=== PATIENT | female | born 1965 | race American Indian/Alaskan Native ===

== ENCOUNTER 2016-07-03 22:29 | Emergency (ER) | payer OTHER ==
[2016-07-03 23:19] VITALS: BMI 25.3
[2016-07-03 23:22] VITALS: RESP 18
[2016-07-03] MEDS ORDERED: Silver Sulfadiazine 1% Cream (20 gm) TOP STA (23:35)
[2016-07-04 01:40] VITALS: BP 153/80; PULSE 79; TEMP 98.1; O2SAT 99
--- NOTE | 2016-07-04 05:12 | ED PDOC ---
Arrival/HPI - General Historian: Patient - History of Present Illness Time/Duration: < week Quality: Burning <Juanito Hutchison - Last Filed: 07/04/16 05:07> <Naresh Valdivia - Last Filed: 07/04/16 05:43> - General Chief Complaint: Lower Extremity Problem/Injury Time Seen by Provider: 07/03/16 23:16 - History of Present Illness Narrative History of Present Illness (Text): 51 y/o female with no significant history presenting with right anterior distal leg pain. Patient states she returned from the [facility] a few days ago where she sustained a sunburn to the area. Patient has used aloe cream without relief. She denies fever, chills, open wound or blistering. She denies other injury or trauma. Her pain is worse with ambulation and standing. She denies any posterior calf pain or swelling. (Juanito Hutchison) Past Medical History - Provider Review Nursing Documentation Reviewed: Yes - Infectious Disease Hx of Infectious Diseases: None - Cardiac Hx Cardiac Disorders: No - Pulmonary Hx Respiratory Disorders: No - Neurological Hx Neurological Disorder: No - HEENT Hx HEENT Disorder: No - Renal Hx Renal Disorder: No - Endocrine/Metabolic Hx Endocrine Disorders: Yes Hx Diabetes Mellitus Type 2: (PRE DIABETIC) - Hematological/Oncological Hx Blood Disorders: No - Integumentary Hx Dermatological Disorder: No - Musculoskeletal/Rheumatological Hx Musculoskeletal Disorders: No - Gastrointestinal Hx Gastrointestinal Disorders: No - Genitourinary/Gynecological Hx Genitourinary Disorders: No - Psychiatric Hx Psychophysiologic Disorder: No Hx Substance Use: No - Surgical History Hx Section: Yes (X4) Hx Tubal Ligation: Yes - Anesthesia Hx Anesthesia: Yes Hx Anesthesia Reactions: No Hx Malignant Hyperthermia: No - Suicidal Assessment Feels Threatened In Home Enviroment: No <Juanito Hutchison - Last Filed: 07/04/16 05:07> Family/Social History - Physician Review Nursing Documentation Reviewed: Yes Family/Social History: Unknown Family HX Smoking Status: Never Smoked Hx Alcohol Use: Yes Hx Substance Use: No <Juanito Hutchison - Last Filed: 07/04/16 05:07> Allergies/Home Meds <Juanito Hutchison - Last Filed: 07/04/16 05:07> <Naresh Valdivia - Last Filed: 07/04/16 05:43> Allergies/Adverse Reactions: Allergies latex Allergy (Verified 07/03/16 23:19) RASH soy Allergy (Verified 07/03/16 23:19) RASH Home Medications: Home Meds Medication Instructions Recorded Confirmed Multivit, Iron, Min #5, FA 1 tab PO DAILY 01/10/15 01/10/15 [Strovite Forte] Cholecalciferol (Vitamin D3) 1 tab PO DAILY 04/27/16 04/27/16 [Vitamin D3] Review of Systems - Physician Review All systems were reviewed & negative as marked: Yes - Review of Systems Constitutional: absent: Fatigue, Fevers Musculoskeletal: absent: Arthralgias, Back Pain Skin: Other (sunburn to distal left leg ). absent: Rash, Pruritis, Cellulitis <Juanito Hutchison - Last Filed: 07/04/16 05:07> Physical Exam Vital Signs Reviewed: Yes Temperature: Afebrile Blood Pressure: Normal Pulse: Regular Respiratory Rate: Normal Appearance: Positive for: Well-Appearing Pain Distress: None Mental Status: Positive for: Alert and Oriented X 3 - Systems Exam Head: Present: Atraumatic, Normocephalic Pupils: Present: PERRL Extroacular Muscles: Present: EOMI Conjunctiva: Present: Normal Mouth: Present: Moist Mucous Membranes Neck: Present: Normal Range of Motion Respiratory/Chest: Present: Clear to Auscultation, Good Air Exchange. No: Respiratory Distress Abdomen: Present: Normal Bowel Sounds. No: Tenderness Upper Extremity: Present: Normal Inspection, Normal ROM, NORMAL PULSES. No: Cyanosis, Edema Lower Extremity: Present: NORMAL PULSES, Normal ROM. No: Normal Inspection ( first degree burn to anterior tibial area. ), Edema, CALF TENDERNESS, Cyanosis, Roma's Sign, Tenderness Neurological: Present: GCS=15, CN II-XII Intact, Speech Normal Skin: Present: Warm, Dry Psychiatric: Present: Alert, Oriented x 3, Normal Insight, Normal Concentration <Juanito Hutchison - Last Filed: 07/04/16 05:07> Vital Signs Temp Pulse Resp BP Pulse Ox 07/04/16 01:39 98.1 F 79 18 153/80 H 99 07/03/16 23:22 73 18 158/91 H 98 07/03/16 23:19 80 16 98 Medical Decision Making <Juanito Hutchison - Last Filed: 07/04/16 05:07> <Naresh Valdivia - Last Filed: 07/04/16 05:43> ED Course and Treatment: 51 y/o with no PMH presenting with first degree sunburn to right anterior distal leg. There is no evidence of cellulitis or underlying blistering or wound. Will manage pain with Motrin 800mg now. Silvadene will be applied topically with gauze dressing. The patient is advised to f/u with her PCP for further monitoring of her burn. She is advised to continue using Motrin as needed for discomfort. (Juanito Hutchison) In agreement with resident note, which includes further HPI details. Patient was seen and evaluated with resident, came up with plan and treatment together. (Naresh Valdivia) - Medication Orders Current Medication Orders: Discontinued Medications Ibuprofen (Motrin Tab) 800 mg PO STAT STA Stop: 07/03/16 23:35 Last Admin: 07/04/16 00:42 Dose: 800 MG MAR Pain/Vitals Document 07/04/16 00:42 [email or web address] (Rec: 07/04/16 00:43 [email or web address] [facility] [id number]) Pain Reassessment Is This A Pain ReAssessment? No Sleep Is patient sleeping during reassessment? No Presence of Pain Presence of Pain Yes Pain Scale Used Pain Scale Used Numeric Location Left, Right or Bilateral Left Pain Location Body Site leg Description Constant Intensity 7 Scale Used Numeric Pain Behavior Facial Grimacing Aggravating Factors Changing Position Aggravating Factors Changing Position Silver Sulfadiazine (Silvadene 1% 20 Gm) 0 ea TOP STAT STA Stop: 07/03/16 23:36 Last Admin: 07/04/16 00:43 Dose: 1 APPL - PA / HARDENING MACHINE OPERATOR HELPER / Resident Statement / has reviewed & agrees with the documentation as recorded. / has examined the patient and agrees with the treatment plan. <Naresh Valdivia - Last Filed: 07/04/16 05:43> Disposition/Present on Arrival - Present on Arrival Any Indicators Present on Arrival: No History of DVT/PE: No History of Uncontrolled Diabetes: No Urinary Catheter: No History of Decub. Ulcer: No History Surgical Site Infection Following: None - Disposition Have Diagnosis and Disposition been Completed?: Yes Disposition Time: 13:00 <Juanito Hutchison - Last Filed: 07/04/16 05:07> <Naresh Valdivia - Last Filed: 07/04/16 05:43> - Disposition Diagnosis: Sunburn of first degree Disposition: HOME/ ROUTINE Condition: STABLE Discharge Instructions (ExitCare): Sunburn (ED) Additional Instructions: Take ibuprofen for pain as needed every 6 hours. You may apply aloe to the skin as needed to sooth skin and pain. Avoid hot showers. Return to ER if symptoms worsen.
== END 2016-07-04 01:39 | disposition home or self-care (01) ==
LOC: ED 22:29
DX: L55.0 Sunburn of first degree (principal)

== ENCOUNTER 2016-10-20 23:07 | Emergency (ER) | payer OTHER ==
[2016-10-20 23:07] VITALS: BMI 25.3
[2016-10-20 23:30] VITALS: BP 145/95; PULSE 78; RESP 16; TEMP 98.2; O2SAT 95
[2016-10-21] MEDS ORDERED: Naproxen 550 mg Tab PO STA (00:12)
--- NOTE | 2016-10-21 00:20 | ED PDOC ---
Arrival/HPI - General Chief Complaint: Lower Extremity Problem/Injury Time Seen by Provider: 10/20/16 23:32 Historian: Patient - History of Present Illness Narrative History of Present Illness (Text): 10/21/16 00:20 51 yo F c/o 3 wk h/o R ankle pain, states that she hit her ankle on a chair 3 wks ago and since then her ankle has intermittently swell and becomes painful. Denies any fever, chills, foot pain, knee pain, or any other injury or joint pain. Past Medical History - Provider Review Nursing Documentation Reviewed: Yes - Infectious Disease Hx of Infectious Diseases: None - Cardiac Hx Cardiac Disorders: No - Pulmonary Hx Respiratory Disorders: No - Neurological Hx Neurological Disorder: No - HEENT Hx HEENT Disorder: No - Renal Hx Renal Disorder: No - Endocrine/Metabolic Hx Endocrine Disorders: Yes Hx Diabetes Mellitus Type 2: (PRE DIABETIC) - Hematological/Oncological Hx Blood Disorders: No - Integumentary Hx Dermatological Disorder: No - Musculoskeletal/Rheumatological Hx Musculoskeletal Disorders: No - Gastrointestinal Hx Gastrointestinal Disorders: No - Genitourinary/Gynecological Hx Genitourinary Disorders: No - Psychiatric Hx Psychophysiologic Disorder: No Hx Substance Use: No - Surgical History Hx Section: Yes (X4) Hx Tubal Ligation: Yes - Anesthesia Hx Anesthesia: Yes Hx Anesthesia Reactions: No Hx Malignant Hyperthermia: No - Suicidal Assessment Feels Threatened In Home Enviroment: No Family/Social History - Physician Review Nursing Documentation Reviewed: Yes Family/Social History: No Known Family HX Smoking Status: Never Smoked Hx Alcohol Use: Yes Hx Substance Use: No Allergies/Home Meds Allergies/Adverse Reactions: Allergies latex Allergy (Verified 10/20/16 23:30) RASH soy Allergy (Verified 10/20/16 23:30) RASH Home Medications: Home Meds Medication Instructions Recorded Confirmed Multivit,Iron,Min 5/Folic Acid 1 tab PO DAILY 01/10/15 10/20/16 [Strovite Forte] Cholecalciferol (Vitamin D3) 1 tab PO DAILY 04/27/16 10/20/16 [Vitamin D3] Iron,Carb/Vit C/Vit B12/Folic 1 tab PO DAILY 10/20/16 10/20/16 [Iron 100 Plus Tablet] Review of Systems - Review of Systems Constitutional: Normal. absent: Fatigue, Weight Change, Fevers Musculoskeletal: Normal, Arthralgias. absent: Back Pain, Neck Pain Skin: Normal. absent: Rash, Pruritis, Skin Lesions Physical Exam Vital Signs Reviewed: Yes Vital Signs Temp Pulse Resp BP Pulse Ox 10/20/16 23:32 98.2 F 78 16 145/95 H 95 10/20/16 23:30 98.2 F 78 16 145/95 H 95 Appearance: Positive for: Well-Appearing, Non-Toxic, Comfortable Pain Distress: None Mental Status: Positive for: Alert and Oriented X 3 - Systems Exam Lower Extremity: Present: Normal Inspection, NORMAL PULSES, Normal ROM, Neurovascularly Intact, Capillary Refill < 2 s, Other (R ankle : (+) mild edema and tenderness to the lateral malleolus, FROM, (-) ecchymosis, DP pulse 2+, sensation intact. ). No: Edema, CALF TENDERNESS, Tenderness, Swelling, Erythema , Deformity, Temperature Abnormalties Neurological: Present: GCS=15, CN II-XII Intact, Speech Normal, Motor Func Grossly Intact, Normal Sensory Function Skin: Present: Warm, Dry, Normal Color. No: Rashes Medical Decision Making ED Course and Treatment: 10/21/16 00:25 51 yo F c/o 3 wk h/o R ankle pain, states that she hit her ankle on a chair 3 wks ago. To r/o fracture, likely sprain, consider contusion. Plan: - XR R ankle - Naprosyn XR R ankle : (-) fracture, (-) dislocation, as read by PA. XR results reviewed and d/w the pt. Parth wrap applied to the ankle. Pt advised RICE to the R ankle, instructed to take Rx medication prn for pain. Otherwise to f/u with pmd or ortho referral provided in 1-2 days without fail. Instructed to return to the ER at any time for any new or worsening symptoms. Pt verbalize understanding of diagnosis, treatment and plan, agrees with outpt follow up. - RAD Interpretation Radiology Orders: 10/21/16 00:12 ANKLE RIGHT 3 VIEWS ROUTINE [RAD] Stat - Medication Orders Current Medication Orders: Discontinued Medications Naproxen (Anaprox Ds) 550 mg PO ONCE STA Stop: 10/21/16 00:13 Last Admin: 10/21/16 00:34 Dose: 550 mg - PA / WIRE MILL OPERATOR / Resident Statement MD/DO has reviewed & agrees with the documentation as recorded. Disposition/Present on Arrival - Present on Arrival Any Indicators Present on Arrival: No History of DVT/PE: No History of Uncontrolled Diabetes: No Urinary Catheter: No History of Decub. Ulcer: No History Surgical Site Infection Following: None - Disposition Have Diagnosis and Disposition been Completed?: Yes Diagnosis: Ankle sprain Disposition: HOME/ ROUTINE Disposition Time: 00:59 Patient Plan: Discharge Patient Problems: Current Active Problems Problem Status Onset Ankle sprain Acute Condition: STABLE Discharge Instructions (ExitCare): Ankle Sprain (ED) Print Language: WELSH Additional Instructions: REST, ICE, ELEVATE. Follow up with pmd or ortho referral provided in 1-2 days without fail. Take prescription as prescribed. Return to the ER at any time for any new or worsening symptoms. Prescriptions: Meloxicam [Mobic] 15 mg PO DAILY PRN #30 tab PRN Reason: Pain, Moderate (4-7) Referrals: PCP,NO [Primary Care Provider] - Follow up with primary Marisa Molina MD [Staff Provider] - Follow up with primary Forms: WORK NOTE
--- NOTE | 2016-10-21 10:19 | RAD ---
PROCEDURE: Right Ankle Radiographs. O off HISTORY: pain COMPARISON: None FINDINGS: BONES: Normal. No fracture. JOINTS: Normal. No osteoarthritis. Ankle mortise maintained. Talar dome intact SOFT TISSUES: Normal. OTHER FINDINGS: None. IMPRESSION: Normal right ankle radiographs.
== END 2016-10-21 01:18 | disposition home or self-care (01) ==
LOC: ED 23:07
DX: S93.401A Sprain of unspecified ligament of right ankle, initial encounter (principal); W22.03XA Walked into furniture, initial encounter

== ENCOUNTER 2016-10-28 14:33 | Emergency (ER) | payer OTHER ==
[2016-10-28 14:33] VITALS: BMI 25.3
[2016-10-28 14:41] VITALS: BP 161/92; TEMP 98.1
--- NOTE | 2016-10-28 14:50 | ED PDOC ---
Arrival/HPI - General Chief Complaint: Lower Extremity Problem/Injury Time Seen by Provider: 10/28/16 14:48 Historian: Patient - History of Present Illness Narrative History of Present Illness (Text): 10/28/16 14:49 This 51 yo female presents to this ED c/o right ankle pain x 4 weeks. Patient stated she was seen in this ED last week for same complain. Patient stated pain has gotten worse. Patient denies trauma, weakness, paresthesias, leg swelling, calf pain, skin rash. Time/Duration: > month Quality: Aching Context: Home Past Medical History - Provider Review Nursing Documentation Reviewed: Yes - Infectious Disease Hx of Infectious Diseases: None - Reproductive Menopause: Yes - Cardiac Hx Cardiac Disorders: No - Pulmonary Hx Respiratory Disorders: No - Neurological Hx Neurological Disorder: No - HEENT Hx HEENT Disorder: No - Renal Hx Renal Disorder: No - Endocrine/Metabolic Hx Endocrine Disorders: Yes Hx Diabetes Mellitus Type 2: (PRE DIABETIC) - Hematological/Oncological Hx Blood Disorders: No - Integumentary Hx Dermatological Disorder: No - Musculoskeletal/Rheumatological Hx Musculoskeletal Disorders: No - Gastrointestinal Hx Gastrointestinal Disorders: No - Genitourinary/Gynecological Hx Genitourinary Disorders: No - Psychiatric Hx Psychophysiologic Disorder: No Hx Substance Use: No - Surgical History Hx Section: Yes (X4) Hx Tubal Ligation: Yes - Anesthesia Hx Anesthesia: Yes Hx Anesthesia Reactions: No Hx Malignant Hyperthermia: No - Suicidal Assessment Feels Threatened In Home Enviroment: No Family/Social History - Physician Review Nursing Documentation Reviewed: Yes Family/Social History: No Known Family HX Smoking Status: Never Smoked Hx Alcohol Use: Yes Hx Substance Use: No Allergies/Home Meds Allergies/Adverse Reactions: Allergies latex Allergy (Verified 10/28/16 14:41) RASH soy Allergy (Verified 10/28/16 14:41) RASH Home Medications: Home Meds Medication Instructions Recorded Confirmed Multivit,Iron,Min 5/Folic Acid 1 tab PO DAILY 01/10/15 10/28/16 [Strovite Forte] Cholecalciferol (Vitamin D3) 1 tab PO DAILY 04/27/16 10/28/16 [Vitamin D3] Iron,Carb/Vit C/Vit B12/Folic 1 tab PO DAILY 10/20/16 10/28/16 [Iron 100 Plus Tablet] Review of Systems - Review of Systems Constitutional: Normal. absent: Fatigue, Weight Change, Fevers Eyes: Normal ENT: Normal Respiratory: Normal Cardiovascular: Normal Gastrointestinal: Normal Genitourinary Female: Normal Musculoskeletal: Other (ankle pain) Skin: Normal Neurological: Normal Endocrine: Normal Hemo/Lymphatic: Normal Psychiatric: Normal Physical Exam Vital Signs Temp Pulse Resp BP Pulse Ox 10/28/16 15:23 98.1 F 85 18 98 10/28/16 15:16 98.1 F 82 16 98 10/28/16 14:36 98.1 F 82 19 161/92 H 99 Temperature: Afebrile Blood Pressure: Normal Pulse: Regular Respiratory Rate: Normal Appearance: Positive for: Well-Appearing, Non-Toxic, Comfortable Pain Distress: None Mental Status: Positive for: Alert and Oriented X 3 - Systems Exam Head: Present: Atraumatic, Normocephalic Pupils: Present: PERRL Extroacular Muscles: Present: EOMI Conjunctiva: Present: Normal Mouth: Present: Moist Mucous Membranes Back: Present: Normal Inspection. No: CVA Tenderness Upper Extremity: Present: Normal Inspection, Normal ROM, NORMAL PULSES, Neurovascularly Intact Lower Extremity: Present: Normal Inspection, NORMAL PULSES, Tenderness ((+) posterior ankle tenderness), Neurovascularly Intact, Capillary Refill < 2 s, Other ((+) Rondon test). No: Edema, CALF TENDERNESS, Roma's Sign, Swelling, Erythema, Deformity, Temperature Abnormalties Neurological: Present: GCS=15, CN II-XII Intact Skin: Present: Warm, Dry, Normal Color. No: Rashes Psychiatric: Present: Alert, Oriented x 3 Medical Decision Making ED Course and Treatment: 10/28/16 16:27 Discussed results and plan with patient. Patient understands results and is agreeable with plan. All questions answered Patient was given a referral for orthopedist at [facility]. Patient was advised she will need MRI and orthopedist consult. Re-evaluation Time: 15:00 Reassessment Condition: Re-examined - Medication Orders Current Medication Orders: Discontinued Medications Ketorolac Tromethamine (Toradol) 30 mg IVP STAT STA Stop: 10/28/16 15:12 Last Admin: 10/28/16 15:20 Dose: 30 mg Disposition/Present on Arrival - Present on Arrival Any Indicators Present on Arrival: No History of DVT/PE: No History of Uncontrolled Diabetes: No Urinary Catheter: No History of Decub. Ulcer: No History Surgical Site Infection Following: None - Disposition Have Diagnosis and Disposition been Completed?: Yes Diagnosis: Achilles tendon rupture Disposition: HOME/ ROUTINE Disposition Time: 15:05 Patient Plan: Discharge Condition: GOOD Discharge Instructions (ExitCare): Achilles Tendon Rupture (ED) Additional Instructions: Call orthopedist clinic for follow up visit in 1-3 days. Call Hydro Operator phone number to get help to set up appointment. Keep ankle elevated, ice, rest. Do not wet, or get splint dirty. Consider [facility] if you have problems with appointment. return to emergency if symptoms worsen. Bring Referral form for the appointment. Prescriptions: Naproxen 500 mg PO BID #14 tab oxyCODONE/Acetaminophen [Percocet 5/325 mg Tab] 1 ea PO BID PRN #10 tab PRN Reason: Pain, Severe (8-10) Referrals: PCP,NO [Primary Care Provider] - Follow up with primary [facility] [Outside] - Follow up with primary [facility] [Outside] - Follow up with primary Forms: [employer] (Chinese)
[2016-10-28 15:16] VITALS: O2SAT 98
[2016-10-28 15:24] VITALS: PULSE 85; RESP 18
== END 2016-10-28 15:24 | disposition home or self-care (01) ==
LOC: ED 14:33
DX: S86.011A Strain of right Achilles tendon, initial encounter (principal); X58.XXXA Exposure to other specified factors, initial encounter; Y93.9 Activity, unspecified; Y92.9 Unspecified place or not applicable
CPT/HCPCS: 96374; 99283; J1885

== ENCOUNTER 2016-11-07 23:06 | Emergency (ER) | payer OTHER ==
[2016-11-07 23:07] VITALS: BMI 25.3
[2016-11-08 00:38] VITALS: BP 145/67; PULSE 73; RESP 16; TEMP 98.2; O2SAT 100
[2016-11-08] MEDS ORDERED: Oxycodone/Acetaminophen 5/325 mg Tab PO STA (01:08)
--- NOTE | 2016-11-08 01:12 | ED PDOC ---
Arrival/HPI - General Chief Complaint: Allergic Reaction Time Seen by Provider: 11/08/16 00:35 Historian: Patient - History of Present Illness Narrative History of Present Illness (Text): 11/08/16 01:09 51 y/o female, post menopausal, here for the splint change and stated that it' s uncomfortable. Pt. was seen here at the ER about several days ago, splint was remove by the patient today as it's uncomfortable. Pt. has pain on and off due to the removal of the splint yesterday, been on the crutches, no numbness or tingling, no other medical or psychological complaints. Past Medical History - Provider Review Nursing Documentation Reviewed: Yes - Infectious Disease Hx of Infectious Diseases: None - Cardiac Hx Cardiac Disorders: No - Pulmonary Hx Respiratory Disorders: No - Neurological Hx Neurological Disorder: No - HEENT Hx HEENT Disorder: No - Renal Hx Renal Disorder: No - Endocrine/Metabolic Hx Endocrine Disorders: Yes Hx Diabetes Mellitus Type 2: (PRE DIABETIC) - Hematological/Oncological Hx Blood Disorders: No - Integumentary Hx Dermatological Disorder: No - Musculoskeletal/Rheumatological Hx Musculoskeletal Disorders: No - Gastrointestinal Hx Gastrointestinal Disorders: No - Genitourinary/Gynecological Hx Genitourinary Disorders: No - Psychiatric Hx Psychophysiologic Disorder: No Hx Substance Use: No - Surgical History Hx Section: Yes (X4) Hx Tubal Ligation: Yes - Anesthesia Hx Anesthesia: Yes Hx Anesthesia Reactions: No Hx Malignant Hyperthermia: No - Suicidal Assessment Feels Threatened In Home Enviroment: No Family/Social History - Physician Review Nursing Documentation Reviewed: Yes Family/Social History: Unknown Family HX Smoking Status: Never Smoked Hx Alcohol Use: No Hx Substance Use: No Allergies/Home Meds Allergies/Adverse Reactions: Allergies latex Allergy (Verified 11/08/16 00:29) RASH soy Allergy (Verified 11/08/16 00:29) RASH Home Medications: Home Meds Medication Instructions Recorded Confirmed Multivit,Iron,Min 5/Folic Acid 1 tab PO DAILY 01/10/15 10/28/16 [Strovite Forte] Cholecalciferol (Vitamin D3) 1 tab PO DAILY 04/27/16 10/28/16 [Vitamin D3] Iron,Carb/Vit C/Vit B12/Folic 1 tab PO DAILY 10/20/16 10/28/16 [Iron 100 Plus Tablet] Review of Systems - Review of Systems Constitutional: absent: Fatigue, Fevers Eyes: absent: Vision Changes ENT: absent: Hearing Changes Respiratory: absent: SOB, Cough Cardiovascular: absent: Chest Pain Gastrointestinal: absent: Abdominal Pain, Nausea, Vomiting Musculoskeletal: Arthralgias. absent: Back Pain, Neck Pain, Joint Swelling, Myalgias Skin: absent: Rash, Pruritis, Skin Lesions Physical Exam Vital Signs Reviewed: Yes Vital Signs Temp Pulse Resp BP Pulse Ox 11/08/16 00:30 98.2 F 73 16 145/67 100 Temperature: Afebrile Blood Pressure: Normal Pulse: Regular Respiratory Rate: Normal Appearance: Positive for: Well-Appearing, Non-Toxic, Comfortable Pain Distress: Moderate Mental Status: Positive for: Alert and Oriented X 3 - Systems Exam Head: Present: Atraumatic, Normocephalic Pupils: Present: PERRL Extroacular Muscles: Present: EOMI Conjunctiva: Present: Normal Mouth: Present: Moist Mucous Membranes Neck: Present: Normal Range of Motion Respiratory/Chest: Present: Clear to Auscultation, Good Air Exchange. No: Respiratory Distress, Accessory Muscle Use Cardiovascular: Present: Regular Rate and Rhythm, Normal S1, S2. No: Murmurs Abdomen: Present: Normal Bowel Sounds. No: Tenderness, Distention, Peritoneal Signs Back: Present: Normal Inspection Upper Extremity: Present: Normal Inspection. No: Cyanosis, Edema Lower Extremity: Present: Normal Inspection, Other (RLE: +ttp on the achilles region with skin intact, no rash or cellulitis, no ulcers, negathive gómez and ventura signs, no visible splints, FROM without limitation, sensation intact, motor 5/5, +DPPT pulses, capillary refill, 2 seconds, neurovascular intact. ). No: Edema Neurological: Present: GCS=15, CN II-XII Intact, Speech Normal Skin: Present: Warm, Dry, Normal Color. No: Rashes Psychiatric: Present: Alert, Oriented x 3, Normal Insight, Normal Concentration Medical Decision Making ED Course and Treatment: 11/08/16 01:12 -Percocet ordered for pain -New posterior splint applied by me with neurovascular intact, pt. feels comfortable, will discharge home. -Discharge home with posterior splint, crutches, elevation, follow up with your own pmd and orthopedic within 2 days, return to the Er for any new or worsening signs or symptoms. - PA / DIRECTOR OF COMMUNITY SERVICES / Resident Statement MD/DO has reviewed & agrees with the documentation as recorded. Disposition/Present on Arrival - Present on Arrival Any Indicators Present on Arrival: No History of DVT/PE: No History of Uncontrolled Diabetes: No Urinary Catheter: No History of Decub. Ulcer: No History Surgical Site Infection Following: None - Disposition Have Diagnosis and Disposition been Completed?: Yes Diagnosis: Aftercare for cast or splint check or change Disposition: HOME/ ROUTINE Disposition Time: 01:14 Patient Plan: Discharge Condition: GOOD Additional Instructions: -Discharge home with posterior splint, crutches, elevation, follow up with your own pmd and orthopedic within 2 days, return to the Er for any new or worsening signs or symptoms. Referrals: Neisha Ruano MD [Staff Provider] - Follow up with primary Forms: [employer] (Slovak), WORK NOTE
== END 2016-11-08 01:34 | disposition home or self-care (01) ==
LOC: ED 23:06
DX: Z47.89 Encounter for other orthopedic aftercare (principal)

== ENCOUNTER 2017-01-19 00:09 | Emergency (ER) | payer OTHER ==
[2017-01-19 00:09] VITALS: BMI 25.3
[2017-01-19] MEDS ORDERED: Oxycodone/Acetaminophen 5/325 mg Tab PO STA (01:00)
--- NOTE | 2017-01-19 01:02 | ED PDOC ---
Arrival/HPI - General Chief Complaint: Lower Extremity Problem/Injury Time Seen by Provider: 01/19/17 00:55 Historian: Patient - History of Present Illness Narrative History of Present Illness (Text): 01/19/17 00:59 Sangeeta Galeana is a 51 year old female who presents to the Emergency department complaining of right ankle pain. Patient states she has been experiencing right ankle pain with intermittent swelling for the past few months following a right ankle injury. Patient states she has been following up at [facility]. Patient states tonight right ankle swelling worsened after wearing her orthopedic boot with associated pain to the area. Patient denies any weakness/numbness/tingling in the extremity, other trauma/injury, or any other complaints. Time/Duration: > month (few months) Symptom Course: Unchanged Activities at Onset: Light Context: Home Past Medical History - Provider Review Nursing Documentation Reviewed: Yes - Infectious Disease Hx of Infectious Diseases: None - Cardiac Hx Cardiac Disorders: No - Pulmonary Hx Respiratory Disorders: No - Neurological Hx Neurological Disorder: No - HEENT Hx HEENT Disorder: No - Renal Hx Renal Disorder: No - Endocrine/Metabolic Hx Endocrine Disorders: Yes Hx Diabetes Mellitus Type 2: (PRE DIABETIC) - Hematological/Oncological Hx Blood Disorders: No - Integumentary Hx Dermatological Disorder: No - Musculoskeletal/Rheumatological Hx Musculoskeletal Disorders: No - Gastrointestinal Hx Gastrointestinal Disorders: No - Genitourinary/Gynecological Hx Genitourinary Disorders: No - Psychiatric Hx Psychophysiologic Disorder: No Hx Substance Use: No - Surgical History Hx Section: Yes (X4) Hx Tubal Ligation: Yes - Anesthesia Hx Anesthesia: Yes Hx Anesthesia Reactions: No Hx Malignant Hyperthermia: No - Suicidal Assessment Feels Threatened In Home Enviroment: No Family/Social History - Physician Review Nursing Documentation Reviewed: Yes Family/Social History: Unknown Family HX Smoking Status: Never Smoked Hx Alcohol Use: No Hx Substance Use: No Allergies/Home Meds Allergies/Adverse Reactions: Allergies latex Allergy (Verified 01/19/17 05:22) RASH soy Allergy (Verified 01/19/17 05:22) RASH Home Medications: Home Meds Medication Instructions Recorded Confirmed Multivit,Iron,Min 5/Folic Acid 1 tab PO DAILY 01/10/15 01/19/17 [Strovite Forte] Cholecalciferol (Vitamin D3) 1 tab PO DAILY 04/27/16 01/19/17 [Vitamin D3] Iron,Carb/Vit C/Vit B12/Folic 1 tab PO DAILY 10/20/16 01/19/17 [Iron 100 Plus Tablet] Review of Systems - Physician Review All systems were reviewed & negative as marked: Yes - Review of Systems Constitutional: Normal. absent: Fevers Eyes: Normal ENT: Normal Respiratory: Normal. absent: SOB, Cough Cardiovascular: Normal. absent: Chest Pain Gastrointestinal: Normal. absent: Abdominal Pain, Diarrhea, Nausea, Vomiting Genitourinary Female: Normal. absent: Dysuria, Frequency, Hematuria, Urine Output Changes Musculoskeletal: Arthralgias (+right ankle pain). absent: Back Pain, Neck Pain Skin: Normal. absent: Rash Neurological: Normal. absent: Headache, Dizziness Endocrine: Normal Hemo/Lymphatic: Normal Psychiatric: Normal Physical Exam Vital Signs Reviewed: Yes Vital Signs Temp Pulse Resp BP Pulse Ox 01/19/17 06:00 72 18 140/92 H 100 01/19/17 04:10 69 18 116/76 100 01/19/17 01:00 98 F 74 18 155/93 H 100 Temperature: Afebrile Blood Pressure: Normal Pulse: Regular Respiratory Rate: Normal Appearance: Positive for: Well-Appearing, Non-Toxic, Comfortable Pain Distress: None Mental Status: Positive for: Alert and Oriented X 3 - Systems Exam Head: Present: Atraumatic, Normocephalic Pupils: Present: PERRL Extroacular Muscles: Present: EOMI Conjunctiva: Present: Normal Mouth: Present: Moist Mucous Membranes Neck: Present: Normal Range of Motion Upper Extremity: Present: Normal Inspection. No: Cyanosis, Edema Lower Extremity: Present: Tenderness (Tenderness to right ankle), Swelling ( Swelling to right ankle). No: Edema Neurological: Present: GCS=15, CN II-XII Intact, Speech Normal Skin: Present: Warm, Dry, Normal Color. No: Rashes Psychiatric: Present: Alert, Oriented x 3, Normal Insight, Normal Concentration Medical Decision Making ED Course and Treatment: 01/19/17 00:59 Impression: 51 year old female complaining of right ankle pain and swelling. Plan: -- CT Right Lower Extremity w/o contrast -- US Duplex Lower Extremity -- Percocet -- Reassess and disposition Prior Visits: Notes and results from previous visits were reviewed. On 11/08/2016, pt was seen in the Emergency department for splint change. Pt was d/c home. Progress Notes: 01/19/17 01:47 Reviewed sono, US Duplex Lower Extremities negative for DVT. 01/19/17 06:16 Reviewed radiology, CT Right Lower Extremity shows: BONES/JOINTS: There is no fracture or dislocation. No significant DJD. There is a mottled appearance of the knee, ankle and hindfoot and midfoot osseous structures which may be due to periarticular osteoporosis. Other process such as multiple myeloma is felt to be unlikely. Correlate clinically. SOFT TISSUES: There is subcutaneous edema about the lower leg and ankle, most severe laterally. There is no evidence of Achilles tendon rupture. The intermuscular fat planes are well-preserved. No muscular abnormality identified. No mass or hematoma. IMPRESSION: No evidence of Achilles tendon rupture. Subcutaneous edema of the lower leg and ankle. Mottled appearance of the knee, ankle, and osseous structures, probably due to osteoporosis. - RAD Interpretation Radiology Orders: 01/19/17 01:00 DUPLEX LOWER EXTRM VEIN RIGHT [US] Stat 01/19/17 01:01 EXT LOWER W/O CONTRAST RIGHT [CT] Stat Bin Piler: Radiologist - Medication Orders Current Medication Orders: Discontinued Medications Oxycodone/Acetaminophen (Percocet 5/325 Mg Tab) 1 tab PO STAT STA Stop: 01/19/17 01:01 Last Admin: 01/19/17 01:12 Dose: 1 tab MAR Pain Assessment Document 01/19/17 01:12 YP (Rec: 01/19/17 01:12 YP [id number]) Pain Reassessment Is this a pain reassessment? No Sleep Is patient sleeping during reassessment? No Presence of Pain Presence of Pain Yes - Scribe Statement The provider has reviewed the documentation as recorded by the Scribprince Lema All medical record entries made by the Scribe were at my direction and personally dictated by me. I have reviewed the chart and agree that the record accurately reflects my personal performance of the history, physical exam, medical decision making, and the department course for this patient. I have also personally directed, reviewed, and agree with the discharge instructions and disposition. Disposition/Present on Arrival - Present on Arrival Any Indicators Present on Arrival: No History of DVT/PE: No History of Uncontrolled Diabetes: No Urinary Catheter: No History of Decub. Ulcer: No History Surgical Site Infection Following: None - Disposition Have Diagnosis and Disposition been Completed?: Yes Diagnosis: Tendinitis of ankle Disposition: HOME/ ROUTINE Disposition Time: 06:15 Condition: GOOD Discharge Instructions (ExitCare): Tendinitis (ED) Prescriptions: Compression Socks, Medium [Futuro Restoring] 1 each MC DAILY #1 each Forms: [employer] (Danish)
[2017-01-19 01:17] VITALS: RESP 18; TEMP 98; O2SAT 100
[2017-01-19 06:30] VITALS: BP 140/92; PULSE 72
--- NOTE | 2017-01-19 11:08 | CT ---
PROCEDURE: CT of the right lower extremity without contrast HISTORY: r/o achiles tendon rupture COMPARISON: TECHNIQUE: Radiation dose: Total exam DLP = 411 mGy-cm. This CT exam was performed using one or more of the following dose reduction techniques: Automated exposure control, adjustment of the mA and/or kV according to patient size, and/or use of iterative reconstruction technique. FINDINGS: The Achilles tendon is intact. There is also no evidence of muscular tear or edema. There is no hemorrhage. There is a mild amount of subcutaneous edema around the distal ankle. The report concurs with the preliminary [facility] report IMPRESSION: No evidence of Achilles tendon tear
--- NOTE | 2017-01-19 11:35 | US ---
PROCEDURE: Right lower extremity venous US HISTORY: Leg pain and swelling. Evaluate for DVT. PHYSICIAN(S): Heriberto Vila M.D. TECHNIQUE: Duplex sonography and color-flow Doppler with graded compression were used to evaluate the deep venous system of the right lower extremity. FINDINGS: The visualized deep venous system of the right lower extremity is sonographically normal and compressible. Normal waveforms and augmentation are seen. There is no sonographic evidence for deep venous thrombosis in the visualized segments of the right lower extremity. IMPRESSION: 1. No sonographic evidence for deep venous thrombosis in the visualized segments of the right lower extremity.
== END 2017-01-19 06:33 | disposition home or self-care (01) ==
LOC: ED 00:09
DX: M77.9 Enthesopathy, unspecified (principal); E11.9 Type 2 diabetes mellitus without complications; Z98.51 Tubal ligation status

== ENCOUNTER 2017-05-24 17:21 | Emergency (ER) | payer OTHER ==
[2017-05-24 17:31] VITALS: RESP 18; TEMP 98.3; BMI 25.7
--- NOTE | 2017-05-24 17:37 | ED PDOC ---
Arrival/HPI - General Time Seen by Provider: 05/24/17 17:27 Historian: Patient - History of Present Illness Narrative History of Present Illness (Text): 05/24/17 17:34 51 year old female, with no significant past medical history, presents to the Emergency department complaining of left sided chest discomfort since 3pm today. Patient describes the discomfort as a burning sensation, radiating to her left arm and jaw. Patient states the pain worsens with movement of the left arm. Patient denies any trauma, past cardiac history, smoking or consumption of alcohol. Patient denies any shortness of breath, fever, chills, nausea, vomiting , diarrhea, abdominal pain or any other complaints. Time/Duration: 1-3 hours Symptom Onset: Gradual Symptom Course: Unchanged Quality: Burning Activities at Onset: Light Context: Home Past Medical History - Provider Review Nursing Documentation Reviewed: Yes - Infectious Disease Hx of Infectious Diseases: None - Cardiac Hx Cardiac Disorders: No - Pulmonary Hx Respiratory Disorders: No - Neurological Hx Neurological Disorder: No - HEENT Hx HEENT Disorder: No - Renal Hx Renal Disorder: No - Endocrine/Metabolic Hx Endocrine Disorders: Yes Hx Diabetes Mellitus Type 2: (PRE DIABETIC) - Hematological/Oncological Hx Blood Disorders: No - Integumentary Hx Dermatological Disorder: No - Musculoskeletal/Rheumatological Hx Musculoskeletal Disorders: No - Gastrointestinal Hx Gastrointestinal Disorders: No - Genitourinary/Gynecological Hx Genitourinary Disorders: No - Psychiatric Hx Psychophysiologic Disorder: No Hx Substance Use: No - Surgical History Hx Section: Yes (X4) Hx Tubal Ligation: Yes - Anesthesia Hx Anesthesia: Yes Hx Anesthesia Reactions: No Hx Malignant Hyperthermia: No - Suicidal Assessment Feels Threatened In Home Enviroment: No Family/Social History - Physician Review Nursing Documentation Reviewed: Yes Family/Social History: No Known Family HX Smoking Status: Never Smoked Hx Alcohol Use: No Hx Substance Use: No Allergies/Home Meds Allergies/Adverse Reactions: Allergies latex Allergy (Verified 01/19/17 05:22) RASH soy Allergy (Verified 01/19/17 05:22) RASH Home Medications: Home Meds Medication Instructions Recorded Confirmed Multivit,Iron,Min 5/Folic Acid 1 tab PO DAILY 01/10/15 01/19/17 [Strovite Forte] Cholecalciferol (Vitamin D3) 1 tab PO DAILY 01/27/17 10/21/17 [Vitamin D3] Iron,Carb/Vit C/Vit B12/Folic 1 tab PO DAILY 10/20/16 01/19/17 [Iron 100 Plus Tablet] Review of Systems - Physician Review All systems were reviewed & negative as marked: Yes - Review of Systems Constitutional: Normal. absent: Fevers Eyes: Normal ENT: Normal Respiratory: Normal. absent: SOB Cardiovascular: Chest Pain Gastrointestinal: Normal. absent: Abdominal Pain, Diarrhea, Nausea, Vomiting Genitourinary Female: Normal Musculoskeletal: Other (discomfort radiating to left jaw and left arm) Skin: Normal Neurological: Normal Endocrine: Normal Hemo/Lymphatic: Normal Psychiatric: Normal Physical Exam Vital Signs Reviewed: Yes Vital Signs Temp Pulse Resp BP Pulse Ox 05/24/17 17:30 98.3 F 81 18 152/93 H 100 Temperature: Afebrile Blood Pressure: Hypertensive Pulse: Regular Respiratory Rate: Normal Appearance: Positive for: Well-Appearing, Non-Toxic, Comfortable Pain Distress: None Mental Status: Positive for: Alert and Oriented X 3 - Systems Exam Head: Present: Atraumatic, Normocephalic Pupils: Present: PERRL Extroacular Muscles: Present: EOMI Conjunctiva: Present: Normal Mouth: Present: Moist Mucous Membranes Neck: Present: Normal Range of Motion Respiratory/Chest: Present: Clear to Auscultation, Good Air Exchange. No: Respiratory Distress, Accessory Muscle Use Cardiovascular: Present: Regular Rate and Rhythm, Normal S1, S2, Other ( reproducible chest wall tenderness with left arm raising.). No: Murmurs Abdomen: Present: Normal Bowel Sounds. No: Tenderness, Distention, Peritoneal Signs Back: Present: Normal Inspection Upper Extremity: Present: Normal Inspection. No: Cyanosis, Edema Lower Extremity: Present: Normal Inspection. No: Edema Neurological: Present: GCS=15, CN II-XII Intact, Speech Normal Skin: Present: Warm, Dry, Normal Color. No: Rashes Psychiatric: Present: Alert, Oriented x 3, Normal Insight, Normal Concentration Medical Decision Making ED Course and Treatment: 05/24/17 17:41 Impression: 51 year old female presents to the Emergency department for left sided chest discomfort. Plan: -- EKG -- Labs -- Chest X-ray -- Reassess and disposition Progress Notes: 05/24/17 17:42 EKG: Ordered, reviewed, and independently interpreted the EKG. Rate : 78 BPM Rhythm : NSR Interpretation : No ST-segment elevations or depressions, no T-wave inversions, normal intervals. - Lab Interpretations Lab Results: 05/24/17 18:00 05/24/17 18:00 Lab Results 05/24/17 18:00: Sodium 142, Potassium 3.8, Chloride 104, Carbon Dioxide 27, Anion Gap 15, BUN 13, Creatinine 0.8, Est GFR ( Amer) > 60, Est GFR (Non- Af Amer) > 60, Random Glucose 92, Calcium 10.3, Total Bilirubin 0.4, AST 23, ALT 28, Alkaline Phosphatase 84, Troponin I < 0.01, Total Protein 7.7, Albumin 4.2, Globulin 3.5, Albumin/Globulin Ratio 1.2 05/24/17 18:00: D-Dimer, Quantitative 223 05/24/17 18:00: WBC 5.1, RBC 3.97, Hgb 10.3 L, Hct 32.2 L, MCV 81.1, MCH 25.9, MCHC 32.0, RDW 14.7 H, Plt Count 267, MPV 10.0, Gran % 43.1 L, Lymph % (Auto) 42.3 H, [place] % (Auto) 7.9 H, Eos % (Auto) 5.9 H, Baso % (Auto) 0.8, Gran # 2.19 , Lymph # (Auto) 2.2, [place] # (Auto) 0.4, Eos # (Auto) 0.3, Baso # (Auto) 0.04 - RAD Interpretation Radiology Orders: 05/24/17 17:34 CHEST PORTABLE [RAD] Stat - Medication Orders Current Medication Orders: Indomethacin (Indocin) 25 mg PO STAT STA Stop: 05/24/17 21:08 - Scribe Statement The provider has reviewed the documentation as recorded by the Scribe Perez Villanueva. All medical record entries made by the Scribe were at my direction and personally dictated by me. I have reviewed the chart and agree that the record accurately reflects my personal performance of the history, physical exam, medical decision making, and the department course for this patient. I have also personally directed, reviewed, and agree with the discharge instructions and disposition. Disposition/Present on Arrival - Present on Arrival Any Indicators Present on Arrival: No History of DVT/PE: No History of Uncontrolled Diabetes: No Urinary Catheter: No History Surgical Site Infection Following: None - Disposition Have Diagnosis and Disposition been Completed?: Yes Diagnosis: Atypical chest pain Disposition: HOME/ ROUTINE Disposition Time: 21:15 Patient Plan: Discharge Condition: STABLE Discharge Instructions (ExitCare): Chest Pain (ED), Costochondritis Prescriptions: Meloxicam [Mobic] 7.5 mg PO BID PRN #14 tab PRN Reason: Pain, Moderate (4-7)
[2017-05-24 18:10] LABS: BASO # 0.04 K/mm3 (0.0-2.0); BASO % 0.8 % (0.0-3.0); EOS # 0.3 (0.0-0.7); EOS % 5.9 % (1.5-5.0); GRAN # 2.19 (1.4-6.5); GRAN % 43.1 % (50.0-68.0); HEMOGLOBIN 10.3 g/dL (12.0-16.0); LYMPH # 2.2 (1.2-3.4); LYMPH % 42.3 % (22.0-35.0); MEAN CELL VOLUME 81.1 fl (80.0-105.0); MEAN CORPUSCULAR HEMOGLOBIN 25.9 pg (25.0-35.0); MONO # 0.4 (0.1-0.6); MONO % 7.9 % (1.0-6.0); RBC 3.97 10^6/uL (3.5-6.1); RED CELL DISTRIBUTION WIDTH 14.7 % (11.5-14.5); WHITE BLOOD COUNT 5.1 10^3/ul (4.5-11.0)
[2017-05-24 18:16] LABS: ALB/GLOB RATIO 1.2 (1.1-1.8); ALBUMIN 4.2 g/dL (3.0-4.8); ALT/SGPT 28 U/L (7-56); AST/SGOT 23 U/L (14-36); BLOOD UREA NITROGEN 13 mg/dL (7-21); CALCIUM 10.3 mg/dL (8.4-10.5); GFR AFRICAN-AMERICAN > 60; GFR NON-AFRICAN AMERICAN > 60
[2017-05-24 18:27] LABS: TROPONIN I < 0.01 ng/mL
[2017-05-24 22:04] VITALS: BP 138/76; PULSE 78; O2SAT 99
--- NOTE | 2017-05-25 09:05 | RAD ---
HISTORY: Chest pain COMPARISON: No prior. FINDINGS: LUNGS: The lungs are well inflated and clear. PLEURA: No significant pleural effusion identified, no pneumothorax apparent. CARDIOVASCULAR: Normal. OSSEOUS STRUCTURES: No significant abnormalities. VISUALIZED UPPER ABDOMEN: Normal. OTHER FINDINGS: None. IMPRESSION: No active pulmonary disease.
--- NOTE | 2017-05-25 19:14 | CARD ---
APPROVED REPORT EKG Measurement Heart [id number] <Conclusion> Normal sinus rhythm Minimal voltage criteria for LVH, may be normal variant Nonspecific T wave abnormality Abnormal ECG
== END 2017-05-24 22:04 | disposition home or self-care (01) ==
LOC: ED 17:21
DX: R07.89 Other chest pain (principal)